=== PATIENT | female | born 1950 | race Caucasian/White ===

== ENCOUNTER → 2018-04-18 | Outpatient (CLI) | payer MEDICARE, OTHER ==
[2014-09-27 13:51] VITALS: BP 128/58
--- NOTE | 2018-04-18 09:20 | KCIC ---
ABDOMEN LTD History: Elevated liver function tests Comparison: None. Findings: Multiple sonographic images of the abdomen are submitted. Exam is somewhat limited due to bowel gas. No focal hepatic lesion is demonstrated. Gallbladder is present without intraluminal abnormality, wall thickening, pericholecystic fluid. There is segmental visualization of the inferior vena cava. Common bile duct is within normal limits about 0.3 cm. Right lobe the liver measured 13.8 cm longitudinal. Right kidney measured about 3.6 x 7.6 x 5.5 cm, no hydronephrosis. Evaluation of the right kidney is limited due to bowel gas, difficult to exclude mass more inferiorly on submitted images for this exam. There is also focus of relative increased echogenicity of the mid pancreatic body about 1.7 x 1.4 cm in size. Impression: 1. Evaluation is limited , cannot exclude mass of the mid pancreatic body or the inferior right kidney on this exam for which pre and postcontrast CT or MR imaging recommended. Electronically signed by: Jose R Frost MD (04/18/2018 9:17 AM) [id number]
== END | disposition home or self-care (01) ==
LOC: KCIC US 07:39
PROVIDERS: ATTEND Family Medicine
DX: R94.5 Abnormal results of liver function studies (principal)
CPT/HCPCS: 76705

== ENCOUNTER → 2018-04-23 | Outpatient (CLI) | payer MEDICARE, OTHER ==
[2014-09-27 13:51] VITALS: BP 128/58
[~2018-04-23] MED LIST: CONTRAST GIVEN. MC PRN; IOHEXOL 240 MG/ML 50ML VIAL. PO ONE; IOHEXOL 300 MG/ML 100ML VIAL. IV ONE
--- NOTE | 2018-04-23 16:43 | KCIC ---
PQRS Compliance statement: One or more of the following individualized dose reduction techniques were utilized for this examination: 1. Automated exposure control. 2. Adjustment of the mA and/or kV according to patient size. 3. Use of iterative reconstruction technique. Indication:Elevated liver function tests. TECHNIQUE: CT abdomen and pelvis without and with IV contrast with multiplanar reformats. COMPARISON: None FINDINGS: Heart is normal in size. No pericardial or pleural effusion. Clear lung bases. Liver, spleen, gallbladder, pancreas, adrenals within normal limits. Partial nephrectomy changes seen in the right kidney. Partial kidneys noted. No nephrolithiasis or hydronephrosis. No suspicious renal lesion. No enlarged retroperitoneal or pelvic adenopathy. No free pelvic fluid or ascites. No bowel obstruction. Large amount of colonic stool burden. Normal appendix. Anteverted uterus. Urinary bladder is within normal limits. Mild diffuse atherosclerotic disease of the abdominal aorta and bilateral iliac arteries. Heavy calcification seen in the region of the celiac axis. No suspicious bony lesion. Grade 1 anterolisthesis of L4 over L5. IMPRESSION: 1. No focal hepatic lesion or hepatic steatosis. 2. No cholelithiasis or imaging evidence of acute cholecystitis. 3. Partial kidney without suspicious lesion or nephrolithiasis. Electronically signed by: Chivo Wallace DO (04/23/2018 4:40 PM) [facility]
== END | disposition home or self-care (01) ==
LOC: KCIC CT 11:29
PROVIDERS: ATTEND Family Medicine
DX: R94.5 Abnormal results of liver function studies (principal); I70.0 Atherosclerosis of aorta; Z79.01 Long term (current) use of anticoagulants; Z82.3 Family history of stroke
CPT/HCPCS: 74178; Q9966; Q9967

== ENCOUNTER → 2019-11-21 | Outpatient (CLI) | payer MEDICARE, OTHER ==
[2014-09-27 13:51] VITALS: BP 128/58
== END | disposition home or self-care (01) ==
LOC: RAD 09:13
PROVIDERS: ATTEND Family Medicine
DX: R06.02 Shortness of breath (principal)
CPT/HCPCS: 71046

== ENCOUNTER → 2020-03-10 | Outpatient (CLI) | payer MEDICARE, OTHER ==
[2014-09-27 13:51] VITALS: BP 128/58
[~2020-03-10] MED LIST changes: +ALEN70TA6 PO; +ASPI-630 PO; +CARB1TAB22 PO; +CLON-77 PO; -CONTRAST GIVEN. MC PRN; +FLUC100T4 PO; +HYDR12.58 PO; -IOHEXOL 240 MG/ML 50ML VIAL. PO ONE; +LIPITOR80 MG PO; +PRAM0.255 PO
--- NOTE | 2020-03-10 09:00 | KCIC ---
CT ANGIOGRAPHY CHEST History: Dyspnea. Chest pain. Technique: CT of the chest was performed with intravenous contrast. PE protocol. Maximum intensity projection coronal and sagittal reconstructions were performed. Exposure: One or more of the following individualized dose reduction techniques were utilized for this examination: 1. Automated exposure control 2. Adjustment of the mA and/or kV according to patient size 3. Use of iterative reconstruction technique. Comparison: CT April 23, 2018 Findings: Chest: No pathologic lymphadenopathy. No pulmonary embolism. No aortic aneurysm or dissection. Mild atheromatous plaque within the aorta and branch vessels. No consolidation or pleural effusion. No pneumothorax. 4 mm right middle lobe anterior basilar nodule (series 4 image 125), not definitely seen on prior CT abdomen and pelvis although may relate to slice selection. 2 mm lingular nodule (image 100), unchanged and likely benign given stability over time. Upper abdomen: Atheromatous plaque abdominal aorta specifically at the origin of the superior mesenteric artery with mild narrowing. Bones: No pathologic osseous lesions. Impression: 1. No acute thoracic pathology. No pulmonary embolism. 2. Small pulmonary nodule. Recommend one-year follow-up if high risk. Electronically signed by: Davey Campo DO (03/10/2020 8:57 AM) [place] [id number]
== END ==
LOC: KCIC CT 07:57
PROVIDERS: ATTEND Internal Medicine Critical Care Medicine
DX: R91.1 Solitary pulmonary nodule (principal); R06.00 Dyspnea, unspecified; I70.0 Atherosclerosis of aorta
CPT/HCPCS: 71275; 82565; Q9967

== ENCOUNTER → 2021-04-06 | Outpatient (CLI) | payer MEDICARE, OTHER ==
[2014-09-27 13:51] VITALS: BP 128/58
[~2021-04-06] MED LIST changes: -ALEN70TA6 PO; +ALEN70TA71 PO; -IOHEXOL 300 MG/ML 100ML VIAL. IV ONE
--- NOTE | 2021-04-06 17:32 | KCIC ---
EXAM: XR LUMBAR SPINE 4+V 04/06/2021 12:35 PM CLINICAL INDICATION: Lower back pain with radiculopathy, chronic pain getting worse COMPARISON: None TECHNIQUE: AP, lateral, right and left oblique, coned-down lateral, and flexion-extension views of t he lumbar spine . FINDINGS: There are are 5 nonrib-bearing lumbar vertebral bodies. No acute fracture. There is 1.1 cm anterolisthesis of L4 on L5, unchanged between flexion and extension. 2-3 mm retrolisthesis of L2 on L3 in neutral and extension, reduces to 0 mm in flexion. There is moderate disc space narrowing with endplate sclerosis at L5-S1. Mild disc space narrowing at the remaining levels. Moderate facet arthr osis at L3-L4, L4-L5, and L5-S1. There are calcifications in the abdominal aorta. IMPRESSION: 1. 1.1 cm anterolisthesis of L4 and L5, unchanged in flexion and extension. 2. 2-3 mm retrolisthesis of L2 on L3 in neutral and extension reduces to 0 mm in flexion. 3. Moderate degenerative disc disease at L5-S1 and mild at the remaining levels. 4. Moderate lower lumbar facet arthrosis. Electronically signed by: Alexandra Marcus MD (04/06/2021 5:29 PM) [id number]
== END ==
LOC: KCIC 12:32
PROVIDERS: ATTEND Nurse Practitioner
DX: M51.37 Other intervertebral disc degeneration, lumbosacral region (principal); M48.07 Spinal stenosis, lumbosacral region; M43.17 Spondylolisthesis, lumbosacral region; M47.26 Other spondylosis with radiculopathy, lumbar region; I70.0 Atherosclerosis of aorta
CPT/HCPCS: 72114

== ENCOUNTER → 2021-04-07 | Outpatient (CLI) | payer MEDICARE, OTHER ==
[2014-09-27 13:51] VITALS: BP 128/58
--- NOTE | 2021-04-07 16:56 | KCIC ---
MR LUMBAR SPINE WO [id number] Date: 04/07/2021 2:10 PM Indication: BACK PAIN W/ LEFT RADICULOPATHY. LBP into LLE. Pain with numbness and tingling in left l eg. Comparison: None. Technique: Multi-planar multi-weighted magnetic resonance imaging of the lumbar spine was performed w ithout intravenous contrast using the standard lumbar spine protocol. FINDINGS: 9 mm anterolisthesis at L4-5 due to facet arthropathy. No acute fracture. Moderate multilevel degener ative disc desiccation and disc height loss. Multilevel degenerative endplate edema. Advanced degener ative changes with degenerative cysts involving the L4 and L5 spinous processes. The conus terminates at a normal level. No abnormal signal is seen within the visualized distal spina l cord. No clumping of intrathecal nerve roots. Horseshoe kidney. T12-L1: No disc bulge. Mild facet arthropathy. No significant spinal stenosis or neural foraminal parker rowing. L1-L2: Disc bulge. Mild facet arthropathy. No significant spinal stenosis or neural foraminal narrowi ng. L2-L3: Disc bulge. Moderate facet arthropathy. Ligamentum flavum thickening. Mild spinal stenosis. Mo derate bilateral neural foraminal narrowing. L3-L4: Disc bulge. Severe facet arthropathy. Ligamentum flavum thickening. Mild spinal stenosis. Mode rate right and mild to moderate neural foraminal narrowing. L4-L5: Disc bulge. Severe facet arthropathy. Ligamentum flavum thickening. Moderate spinal stenosis a nd lateral recess narrowing. Mild right and severe left neural foraminal narrowing. L5-S1: Disc with far lateral protrusions bulge. Mild right and moderate left facet arthropathy. No si gnificant spinal stenosis. Mild right and moderate left neural foraminal narrowing. IMPRESSION: Moderate to severe lumbar spondylosis. Electronically signed by: Jose R Olmstead MD (04/07/2021 4:54 PM) [place] [place] [facility]
== END ==
LOC: KCIC MRI 13:48
PROVIDERS: ATTEND Nurse Practitioner
DX: M47.27 Other spondylosis with radiculopathy, lumbosacral region (principal); M47.25 Other spondylosis with radiculopathy, thoracolumbar region; M51.17 Intervertebral disc disorders with radiculopathy, lumbosacral region; M48.07 Spinal stenosis, lumbosacral region; Q63.1 Lobulated, fused and horseshoe kidney
CPT/HCPCS: 72148

== ENCOUNTER → 2021-09-24 | Outpatient (CLI) | payer MEDICARE ==
[2014-09-27 13:51] VITALS: BP 128/58
[~2021-09-24] MED LIST changes: +CARB1CAP3 PO; +FAMO20TA5 PO; -FLUC100T4 PO; +FLUC100T6 PO; +METO25TA2 PO
--- NOTE | 2021-09-24 12:50 | PDOC1 ---
INITIAL PAIN CONSULT DATE OF SERVICE: DOS: DATE: 09/24/21 TIME: 12:43 CHIEF COMPLAINT: Chief Complaint: Low back and left lower extremity pain HISTORY OF PRESENT ILLNESS: 70-year-old female presents with history of pain low back left lower extremity for about 6 months not the result of any specific injury or accident that she is aware of is getting worse with time and daily activities patient reports is begi nning to become much more noticeable and painful in the low back left lower extremity posterior gluteus posterior lateral thigh lateral anterior thigh anteromedial thigh medial lower leg to the ankle and the sole of the foot as well on the left side only patient reports no significant pain on the right side patient reports is worse with walking and standing changing positions getting up from seated position it wakes her from sleep about 3 times a night does not affect her bowel bladder control with some increased frequency but no loss of continence patient reports it does affect her ability to walk significantly although is not use any assistive devices. Patient is been doing stretching strength exercises on her own has had some chiropractic treatment in the past but nothing recently for physical therapies currently. Patient reports no loss of motor function but significant fatigability of the left lower extremity with activity. Patient rates her disability rating 0-10 with 10 being worst is a 7 family responsibilities 6 with recreation 3 with social activity 5 with occupation 3 with sexual behavior and self-care activity and/support activities. Patient did have MRI scan of the lumbar spine showing significant disc bulge L3-4 L4-5 and L5-S1 L4-5 showing moderate spinal stenosis and lateral recess narrowing with mild right and severe left neuroforaminal narrowing L5-S1 shows mild right and moderate left neuroforaminal narrowing as well. PAST MEDICAL HISTORY: PMH: Hypertension, arthritis, Parkinson's disease PREVIOUS SURGERIES: Past Surgical Hx: Right rotator cuff repair, bunionectomy, left partial nephrectomy, tonsillectomy CURRENT MEDICATIONS: Current Meds: Active Scripts Medications Dose Route/Sig Max Daily Dose Days Date Category Toprol Xl (Metoprolol Succinate) 25 Mg Tab.er.24h 12.5 Mg PO BID 09/24/21 Reported Famotidine 20 Mg Tablet 20 Mg PO BID 09/24/21 Reported Rytary ER 36.25 mg-145 mg Cap (Carbidopa/Levodopa) 1 Each Capsule.er 4 Each PO QID 09/24/21 Reported Clonazepam (Clonazepam) 0.5 Mg Tablet 0.5 Mg PO BID 03/09/20 Reported Lipitor (Atorvastatin Calcium) 80 Mg Tablet 1 Tab PO DAILY 03/09/20 Reported Hydrochlorothiazide Tablet (Hydrochlorothiazide) 12.5 Mg Tablet 12.5 Mg PO DAILY 03/09/20 Reported ALLERGIES; Allergies: Coded Allergies: No Known Drug Allergies (Unverified , 09/27/14) FAMILY HISTORY: Family Hx: Alzheimer's disease, arthritis, hypertension, strokes, cancers SOCIAL HISTORY: Social Hx: Patient does not smoke, does not drink, does not use any illegal illicit or recreational drugs is lives with her spouse lives locally in [facility] and reports she is currently retired. REVIEW OF SYSTEMS: ROS: Positive for those items mentioned in history of present illness, all systems are reviewed, otherwise negative ,and are complete full and well-documented on patient's chart. PHYSICAL EXAM: VS: Blood pressure is 132/72 pulse 61 respirations 18 temperature is 90.5 F height is 5 foot 1 inch weight is 130 pounds PE: PHYSICAL EXAMINATION: GENERAL: The patient is awake, alert, oriented, appropriate, very pleasant in demeanor, patient has resting tremors and involuntary movements of the upper torso neck and extremities consistent with Parkinson's disease HEENT: Shows normocephalic, atraumatic. Extraocular movements are intact and symmetrical. Oral cavity: Mucous membranes moist and pink. Dentition is intact. NECK: Shows anterior throat supple without palpable lymphadenopathy noted. Swallow reflex symmetrical. CHEST: Shows normal on inspection. Breath sounds are clear bilaterally, no rales rhonchi or wheezes auscultated. HEART: Shows S1, S2 clear. No murmurs auscultated. ABDOMEN: Soft, nontender, nondistended. No palpable organomegaly is noted. BACK: Shows spine grossly in the midline. Normal-appearing cervical lordotic curvature. There is slightly increased thoracic kyphosis, some minor flattening of the lumbar lordotic curvature. Lumbar paraspinous muscles show symmetrical o n inspection, on palpation shows some moderate tenderness diffusely throughout the upper, middle and lower distribution of the paraspinous muscles bilaterally and also into the lower thoracic paraspinous musculature, firm and tender, but without specific trigger points, without radiation of pain. The patient has good rotational motion of the lumbar spine, both laterally as well as extension and flexion without significant difficulty. No tenderness over the spinous processes, sacrum or sacroiliac regions. EXTREMITIES: Lower extremities show deep tendon reflexes 1+ in the patellar and tendo calcaneus tendons. Motor exam is 5 on a scale of 5 with right dorsiflexion, extension, quadriceps and hamstring flexion and 4/5 on the left. Peripheral pulses are 1+ posterior tibial. No peripheral edema is noted bilaterally. Lower extremities are warm and dry to touch, equal in color and appearance. Straight leg raise noted to be positive on the left at approximate 40 degrees, decreased with knee flexion right side is negative. Gaenslen's and Shen's maneuvers are negative bilaterally. The patient is able to stand, stand on her toes without significant difficulty or loss of balance, walks with a slight antalgic gait more due to the Parkinson's but does appear to favor her left lower extremity moderately and not using any assistive devices to ambulate. SKIN: Shows warm and dry, good turgor. No edema. No sores, rashes or bruising throughout. IMPRESSION: Impression: 70-year-old female with approximate 6-month history low back left lower extremity pain in a radicular fashion. MRI scan lumbar spine as noted Arthritis Hypertension Parkinson's disease Plan: Options were discussed with the patient including conservative managements physical therapies and interventional techniques. Patient would like to pursue interventional techniques. We discussed a lumbar epidural steroid injections description as well as anatomical models to describe the procedure. Patient would like to discuss this with her spouse, and will call with any further questions that she may have or that he may have prior to determining interventional treatment. JOEL MONTES MD Sep 24, 2021 12:50
== END | disposition home or self-care (01) ==
LOC: PNCL 11:14
PROVIDERS: ATTEND Anesthesiology
DX: M79.605 Pain in left leg (principal); M54.50 Low back pain, unspecified; I10 Essential (primary) hypertension; M19.90 Unspecified osteoarthritis, unspecified site; Z79.899 Other long term (current) drug therapy; Z72.89 Other problems related to lifestyle; Z98.890 Other specified postprocedural states
CPT/HCPCS: G0463

== ENCOUNTER → 2021-10-04 | Outpatient (CLI) | payer MEDICARE ==
[2014-09-27 13:51] VITALS: BP 128/58
--- NOTE | 2021-10-04 14:41 | PDOC4 ---
Procedure Note: ICD 10 Code: ICD 10 Code: M54.16 M51.36 M48.06 Procedure Note: Patient was consented for lumbar epidural steroid injection fluoroscopic guidance. Risks were discussed including but not limited to: Bleeding, infection, possibility of epidural hematoma and subsequent neurological compromise, dural puncture, headaches, spinal cord and/or nerve damage, side effects of steroid medication, and poor results regarding pain control. Patient understands and wished to proceed. Procedure is lumbar epidural steroid injection under local anesthetic using sterile prep and drape at the L4-5 level using C-arm fluoroscopic guidance in both AP and lateral views medications injected is 20 mg dexamethasone +10mL preservative-free normal saline and 2 mL contrast- condition at discharge is stable patient tolerated procedure well had no complications. JOEL MONTES MD October 04, 2021 14:41
--- NOTE | 2021-10-04 14:41 | PDOC ---
Progress Note - Pain Clinic Date of Service: DOS: DATE: 10/04/21 TIME: 14:38 Diagnosis: Dx: Lumbar radiculopathy with lumbar degenerative disease and lumbar spinal stenosis History or Present Illness: HPI: 70-year-old female returns after initial evaluation with still pain in the low back and in the left lower extremity patient reports some pain now in the mid upper back as well as the right shoulder not the result of any specific injury or accident that he is aware of but patient reports still significant pain chief complaint in the low back and left leg patient rates her pain is a 10 on scale 10 is worse over the past week 9 on average and a 5 at its least and is a 5 today patient reports sharp and shooting in the low back left lower extremity cramping stabbing burning and tingling radiating the left lateral thigh anterior thigh medial thigh into the calf as well patient reports it can be unbearable on and off in intensity patient reports pain in the shoulders also burning and cramping stabbing radiating to the mid upper arm as well as into the distal fingers on the right side which is new for her. Patient reports no loss of motor function but significant difficulty with reaching overhead with her right arm repetitive motions and lifting items with the right hand even Patient reports is only 10 pounds. Patient reports no new motor or sensory deficits no bowel or bladder incontinence. Physical Exam: VS: Blood pressure is 106/59 pulse 67 respirations 18 temperature 98.2 F height is 5 foot weight is 131 pounds. PE: PHYSICAL EXAMINATION: GENERAL: The patient is awake, alert, oriented, appropriate, very pleasant in demeanor HEENT: Shows normocephalic, atraumatic. Extraocular movements are intact and symmetrical. Patient wearing eyeglasses. Oral cavity: Mucous membranes moist and pink. Dentition is intact. NECK: Shows anterior throat supple without palpable lymphadenopathy noted. Swallow reflex symmetrical. CHEST: Shows normal on inspection. Breath sounds are clear bilaterally, distant but no rales or rhonchi auscultated. HEART: Shows S1, S2 clear. No murmurs auscultated. ABDOMEN: Soft, nontender, nondistended. No organomegaly is noted. BACK: Shows spine grossly in the midline. Normal-appearing cervical lordotic curvature. There is slightly increased thoracic kyphosis, some minor flattening of the lumbar lordotic curvature. Lumbar paraspinous muscles show symmetrical on inspection, on palpation shows some moderate tenderness diffusely throughout the upper, middle and lower distribution of the paraspinous muscles without specific trigger points, without radiation of pain. The patient has good rotational motion of the lumbar spine, both laterally as well as extension and flexion without significant difficulty. EXTREMITIES: Lower extremities show deep tendon reflexes 1+ in the patellar and tendo calcaneus tendons. Motor exam is 5 on a scale of 5 with right dorsiflexion, extension, quadriceps and hamstring flexion and 4/5 on the left. Peripheral pulses are 1+ posterior tibial. No peripheral edema is noted bilaterally. Lower extremities are warm and dry to touch, equal in color and appearance. SKIN: Shows warm and dry, good turgor. No edema. No sores, rashes or bruising throughout. Procedure: Procedure: Options were discussed with the patient. Patient chart was reviewed as her current medication regimen updated current review of systems updated today as well. We will proceed with a lumbar epidural steroid injection today with fluor oscopic guidance. Risks were discussed including but not limited to: Bleeding, infection, possibility of epidural hematoma and subsequent neurological compromise, dural puncture, headaches, spinal cord and/or nerve damage, side effects of steroid medication, and poor results regarding pain control. Patient understands and wished to proceed. Patient will return to clinic in appro ximately 2 weeks for follow-up, was counseled as to return appointment, activity level, and side effects to be aware of. Medication Injected: Med Injected: Procedure is lumbar epidural steroid injection under local anesthetic using sterile prep and drape at the L4-5 level using C-arm fluoroscopic guidance in both AP and lateral views medications injected is 20 mg dexamethasone +10mL preservative-free normal saline and 2 mL contrast- condition at discharge is stable patient tolerated procedure well had no complications. Condition at Discharge: Condition at Discharge: Condition at discharge is stable, patient tolerated the procedure well and had no complications. JOEL MONTES MD October 04, 2021 14:41
== END | disposition home or self-care (01) ==
LOC: PNCL 13:39
PROVIDERS: ATTEND Anesthesiology
DX: M51.16 Intervertebral disc disorders with radiculopathy, lumbar region (principal); M48.061 Spinal stenosis, lumbar region without neurogenic claudication; Z72.89 Other problems related to lifestyle; Z79.899 Other long term (current) drug therapy
CPT/HCPCS: 62323